=== PATIENT | female | born 1995 | race Caucasian/White ===

== ENCOUNTER 2016-06-11 15:41 | Outpatient (CLI) | payer OTHER ==
[~2016-06-11] VITALS: Ht 154.9 cm; Wt 53.2 kg
[2016-06-11 15:47] VITALS: BP 108/61; PULSE 88; RESP 16; Ht 154.9 cm; Wt 53.2 kg
--- NOTE | 2016-06-11 16:52 | CONS ---
Date/Time of Note Date/Time of Note DATE: 06/11/16 TIME: 16:38 Assessment/Plan Assessment/Plan Additional Assessment/Plan [facility] SUBSEQUENT OUTPATIENT CONSULTATION NOTE DATE OF CONSULTATION: 06/11/16 PLACE OF SERVICE: [facility]. IMPRESSION AND PLAN: A very pleasant, otherwise healthy 20-year-old young lady , well known to us since initial visit on 12/12/2015 when she presented for evaluation and management of a 1.4 x 2 x 1.1 cm lesion in right breast, 11-o' clock position, 2 cm from the nipple that both on clinical exam as well as ultrasound findings was consistent with a benign fibroadenoma. Repeat US 05/08/16 : 1.7 x 2.0 x 0.9 cm stable hypoechoic mass. + new pain above the lesion along the lateral upper portion of right breast going into the axilla. Do not suspect infection. Recommended symptomatic treatment with follow up in 6 months with repeat US. If pain johnston not improve in a few weeks, to consider further imaging including possibly a bilateral breast MRI (reviewed risks of overtreatment). Answered all questions. Patient appeared to understand and wished to proceed. With above impression, I have recommended the followin. Bilateral breast ultrasound 10/2016. 2. Followup visit with us after above is done. 3. For the patient to please call us immediately if there are any changes in her clinical condition including increase in size, increase in symptoms, nipple discharge or other issues. Thank you again for allowing us to participate in the care of this very pleasant young lady and I'm certain her wonderful family. If there are any questions, please feel free to call me at [phone]. TOTAL VISIT TIME: Thirty minutes, of which more than half was spent in face-to- face discussion with the patient as well as coordination of care between multiple physicians and providers. Updated Clinical Summary: A very pleasant, otherwise healthy 20-year-old young lady, well known to us since initial visit on 12/12/2015 when she presented for evaluation and management of a 1.4 x 2 x 1.1 cm lesion in right breast, 11-o'clock position, 2 cm from the nipple that both on clinical exam as well as ultrasound findings was consistent with a benign fibroadenoma. Repeat US 05/08/16: 1.7 x 2.0 x 0.9 cm stable hypoechoic mass. + new pain reported 06/11/16 above the lesion along the lateral upper portion of right breast going into the axilla since 01/2016. HISTORY OF PRESENT ILLNESS: The patient is a very pleasant, otherwise healthy 20-year-old young lady, following up for R breast lesion that is thought to be a fibroadenoma. She reports tenderness in that region. No skin changes, no breast asymmetry. No nipple discharge. No prior issues with her breasts. No family history of breast disease including no breast cancer. The patient had an ultrasound 10/11/2015 that showed a lesion at the 11-o'clock position of the right breast 2 cm from the nipple with lobulated hypoechoic features and measuring 1.4 x 2.0 x 1.1 cm. This was read as a BI-RADS 3 and probably benign lesion, and recommendation was made to have a breast ultrasound in 6 months. Seen initially by us 11/2015. Repeat US 05/08/16: 1.7 x 2.0 x 0.9 cm stable hypoechoic mass. + new pain reported 06/11/16 above the lesion along the lateral upper portion of right breast going into the axilla since 01/2016. Today I had the chance to meet the patient and review all her information very carefully. She has no other major complaints. A 14-point review of systems is otherwise negative. Comorbidities: 1. R breast lesion as above 2. Status post of her 2-year-old daughter 2 years ago. ALLERGIES: PENICILLIN WITH UNKNOWN REACTION. MEDICATIONS: None. SOCIAL HISTORY: The patient currently works as a station cashier. She is a single mother and has a 2-year-old daughter. She also is going to physician assistant [employer] and has 1 more month left to finish the training. She does not report any smoking, drinking or intravenous drug use. FAMILY HISTORY: Significant for grandfather with knee and back-type malignancy. Aunt with an unknown malignancy and a cousin with a right eye malignancy that led to removal of the eye. There is also history of diabetes, heart disease, stroke and high blood pressure in the family. REVIEW OF SYSTEMS: Other than the above mentioned, there are no other pertinent positives or pertinent negatives in a complete 14-point review of systems. PHYSICAL EXAMINATION: GENERAL: The patient appears to be a very pleasant young lady of descent, appearing stated age, sitting in a chair comfortably and in no acute distress. Her BMI is 22.2 (previously 22.7 11/2015). VITAL SIGNS: Stable and she is afebrile. HEENT: Her head is normocephalic and atraumatic. Her extraocular muscles and hearing are grossly intact bilaterally and symmetrically. Her sclerae are nonicteric. Her oral cavity is clear, and her oral mucosa appears to be pink and moist. She has relatively fair dentition. NECK: Supple. There is no lymphadenopathy or JVD. There is no submental, submandibular or supraclavicular lymphadenopathy. CHEST: Rises symmetrically with each breath and she is breathing comfortably. BREASTS: Essentially unchanged from prior exam: Bilateral and symmetrical breasts with both arms raised over her head. There is no peau d'orange or other obvious skin abnormalities. Careful examination of the left axilla shows no lymphadenopathy or abnormal features. Careful examination of the left breast shows a few nodules which are slight to no tenderness to palpation scattered throughout the left breast region. There is no nipple-areola complex abnormality and no nipple discharge with squeezing. Careful examination of the right axilla shows no evidence of lymphadenopathy or abnormality in this area. Careful examination of the right breast shows above-mentioned lesion at the 11-o 'clock position 2 cm away from the nipple-areola complex which is somewhat tender to palpation. There are smooth edges associated with this, and it is relatively mobile and certainly not fixed to any of the underlying structures. The rest of the exam is consistent with more less than 1 cm nodules times 2 or 3 scattered throughout the right breast. Nipple-areolar complex is normal, and there is no discharge from the nipple with squeezing the nipple. ABDOMEN: Soft, nontender and nondistended. There are no peritoneal signs or guarding. SKIN: Appears to be pink and feels warm to touch. NEUROLOGIC: She is awake, alert and follows commands appropriately. LABORATORY VALUES: None for this exam. IMAGING: Above-mentioned ultrasound was reviewed by me personally. Consultation Date/Type/Reason Admit Date/Time Initial Consult Date Exam/Review of Systems Vital Signs Vitals Vital Signs Date Time Temp Pulse Resp B/P Pulse Ox O2 Delivery O2 Flow Rate FiO2 06/11/16 15:47 98.6 88 16 108/61 99 Room Air CASEY MARLEY M.D. Jun 11, 2016 16:49
== END 2016-06-11 16:46 | disposition home or self-care (01) ==
LOC: HPC 15:41
PROVIDERS: ATTEND Transplant Surgery
DX: N64.9 Disorder of breast, unspecified (principal); Z88.0 Allergy status to penicillin
CPT/HCPCS: G0463

== ENCOUNTER 2017-03-04 09:28 | Outpatient (CLI) | payer OTHER ==
[~2017-03-04] VITALS: Ht 154.9 cm; Wt 54.1 kg
[2017-03-04 09:53] VITALS: BP 106/55; PULSE 79; RESP 16; Ht 154.9 cm; Wt 54.1 kg
--- NOTE | 2017-03-04 12:39 | CONS ---
Date/Time of Note Date/Time of Note DATE: 03/04/17 TIME: 12:39 Assessment/Plan Assessment/Plan Additional Assessment/Plan [facility] SUBSEQUENT OUTPATIENT CONSULTATION NOTE DATE OF CONSULTATION: 03/04/2017 PLACE OF SERVICE: [facility] at [facility]. IMPRESSION AND PLAN: A very pleasant, otherwise healthy 21-year-old young lady , well known to us since initial visit on 12/12/2015 when she presented for evaluation and management of a 1.4 x 2 x 1.1 cm lesion in right breast, 11-o' clock position, 2 cm from the nipple that both on clinical exam as well as ultrasound findings was consistent with a benign fibroadenoma. We have been following the patient symptomatically and I had requested a biopsy of the lesion in right breast which unfortunately came back as fibroadenoma. Repeat ultrasound 02/09/2017 also showed benign disease. But because the patient is having ongoing pain in this region and it has been about a year, she requested and I agreed to surgical removal of this region with the goal of reducing if not completely eliminating the pain. I did spend quite a bit of time with the patient (no family present) and explained to her that there is a small chance that her pain may persist even after surgery. We reviewed the operation in detail including the risks, benefits, and alternatives and I obtain the patient' s consent for the operation. Answered all questions. Patient appeared to understand and wished to proceed. Previous assessments that applies today: Repeat US 05/08/16: 1.7 x 2.0 x 0.9 cm stable hypoechoic mass. + new pain above the lesion along the lateral upper portion of right breast going into the axilla. Do not suspect infection. Recommended symptomatic treatment with follow up in 6 months with repeat US. If pain johnston not improve in a few weeks, to consider further imaging including possibly a bilateral breast MRI (reviewed risks of overtreatment). With above impression, I have recommended the followin. Schedule patient for local excision of the right breast lesion (11 o'clock position 2 cm away from the nipple) Thank you again for allowing us to participate in the care of this very pleasant young lady and I'm certain her wonderful family. If there are any questions, please feel free to call me at [phone]. Nature of presenting problem: Low severity Please note that, given the limited number of diagnoses or management options, the limited amount and/or complexity of data needed to be reviewed, and low risk of complications and/or morbidity or mortality, this qualifies as low complexity type of decision-making. Disclaimers: 1. Inadvertent spelling and grammatical errors are likely due to electronic health record (EHR)/dictation software used and do not reflect on the quality of delivered patient care. 2. The electronic timestamp recorded on this note does not necessarily reflect the actual date and time of the visit or the service. 3. Portions of this note may have been created through electronic templates and computer algorithms that might bring in information either from the system or from other physicians and providers. Please note that such information may or may not contain errors, the occurrence of which are outside of my control. In general (but not always) this happens either in the beginning or at the end of the note. The portion of the note that I have created are generally done in 1 continuous block of text, flanked at the beginning and at the end by " ", and entered into one field in the EHR. 4. There may be other unanticipated errors in the note that are outside of my control. I can only attest to the portions of the note that I have created. Updated Clinical Summary: A very pleasant, otherwise healthy 20-year-old young lady, well known to us since initial visit on 12/12/2015 when she presented for evaluation and management of a 1.4 x 2 x 1.1 cm lesion in right breast, 11-o'clock position, 2 cm from the nipple that both on clinical exam as well as ultrasound findings was consistent with a benign fibroadenoma. Repeat US 05/08/16: 1.7 x 2.0 x 0.9 cm stable hypoechoic mass. + new pain reported 06/11/16 above the lesion along the lateral upper portion of right breast going into the axilla since 01/2016. Ultrasound-guided right breast biopsy 08/14/2016 showed fibroadenomatoid nodule without any evidence of malignancy. Repeat breast ultrasound 02/09/2017 showed BI-RADS 2 benign findings. Comorbidities: 1. R breast lesion as above 2. Status post of her 2-year-old daughter 2013 HISTORY OF PRESENT ILLNESS: The patient is a very pleasant, otherwise healthy 21-year-old young lady who we have been following for management of a R breast lesion that is thought to be a fibroadenoma and has been giving patient pain and noted in existence for at least a year. She reports ongoing issues with tenderness in that region with some radiation upwards and lateral without significant change room attendant a year. No skin changes, no breast asymmetry. No nipple discharge. No prior issues with her breasts. No family history of breast disease including no breast cancer. The patient had an ultrasound 2015 that showed a lesion at the 11-o'clock position of the right breast 2 cm from the nipple with lobulated hypoechoic features and measuring 1.4 x 2.0 x 1.1 cm. This was read as a BI-RADS 3 and probably benign lesion, and recommendation was made to have a breast ultrasound in 6 months. Seen initially by us 11/2015. Repeat US 05/08/16: 1.7 x 2.0 x 0.9 cm stable hypoechoic mass. + new pain reported 06/11/16 above the lesion along the lateral upper portion of right breast going into the axilla since 01/2016. Further workup was done and is outlined in the summary above. Today I had the chance to meet the patient and review all her information very carefully. She has no other major complaints. A 14-point review of systems is otherwise negative. ALLERGIES: PENICILLIN WITH UNKNOWN REACTION. MEDICATIONS: None. SOCIAL HISTORY: The patient currently works as a [employer] ticket cashier. She is a single mother and has a young daughter. 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 She does not report any smoking, drinking or intravenous drug use. FAMILY HISTORY: Significant for grandfather with knee and back-type malignancy. Aunt with an unknown malignancy and a cousin with a right eye malignancy that led to removal of the eye. There is also history of diabetes, heart disease, stroke and high blood pressure in the family. REVIEW OF SYSTEMS: Other than the above mentioned, there are no other pertinent positives or pertinent negatives in a complete 14-point review of systems. PHYSICAL EXAMINATION: GENERAL: The patient appears to be a very pleasant young lady of descent, appearing stated age, sitting in a chair comfortably and in no acute distress. Her BMI is 22.5 (previously 22.7 11/2015). VITAL SIGNS: Stable and she is afebrile. HEENT: Her head is normocephalic and atraumatic. Her extraocular muscles and hearing are grossly intact bilaterally and symmetrically. Her sclerae are nonicteric. Her oral cavity is clear, and her oral mucosa appears to be pink and moist. She has relatively fair dentition. NECK: Supple. There is no lymphadenopathy or JVD. There is no submental, submandibular or supraclavicular lymphadenopathy. CHEST: Rises symmetrically with each breath and she is breathing comfortably. BREASTS: Essentially unchanged from prior exam: Bilateral and symmetrical breasts with both arms raised over her head. There is no peau d'orange or other obvious skin abnormalities. Careful examination of the left axilla shows no lymphadenopathy or abnormal features. Careful examination of the left breast shows a few nodules which are slight to no tenderness to palpation scattered throughout the left breast region. There is no nipple-areola complex abnormality and no nipple discharge with squeezing. Careful examination of the right axilla shows no evidence of lymphadenopathy or abnormality in this area. Careful examination of the right breast shows above-mentioned lesion at the 11-o 'clock position 2 cm away from the nipple-areola complex which is somewhat tender to palpation. There are smooth edges associated with this, and it is relatively mobile and certainly not fixed to any of the underlying structures. The rest of the exam is consistent with more less than 1 cm nodules times 2 or 3 scattered throughout the right breast. Nipple-areolar complex is normal, and there is no discharge from the nipple with squeezing the nipple. ABDOMEN: Soft, nontender and nondistended. There are no peritoneal signs or guarding. SKIN: Appears to be pink and feels warm to touch. NEUROLOGIC: She is awake, alert and follows commands appropriately. LABORATORY VALUES: None for this exam. IMAGING: Above-mentioned ultrasound was reviewed by me personally. Consultation Date/Type/Reason Admit Date/Time Exam/Review of Systems Vital Signs Vitals Vital Signs Date Time Temp Pulse Resp B/P Pulse Ox O2 Delivery O2 Flow Rate FiO2 03/04/17 09:53 98.9 79 16 106/55 98 Room Air CASEY MARLEY M.D. Mar 04, 2017 12:39
== END 2017-03-04 17:00 | disposition home or self-care (01) ==
LOC: HPC 09:28
PROVIDERS: ATTEND Transplant Surgery
DX: D24.1 Benign neoplasm of right breast (principal); N63.10 Unspecified lump in the right breast, unspecified quadrant; Z88.0 Allergy status to penicillin
CPT/HCPCS: G0463

== ENCOUNTER 2017-04-30 08:10 | Day surgery (SDC) | END 2017-04-30 16:27 | disposition home or self-care (01) ==

== ENCOUNTER 2017-05-13 15:30 | Outpatient (CLI) | END 2017-05-13 15:53 | disposition home or self-care (01) ==

== ENCOUNTER 2017-09-04 22:41 | Emergency (ER) | END 2017-09-05 01:56 | disposition home or self-care (01) ==

== ENCOUNTER 2018-01-20 11:00 | Outpatient (CLI) | END 2018-01-20 15:45 | disposition home or self-care (01) ==

== ENCOUNTER 2018-02-15 19:48 | Outpatient (CLI) | END 2018-02-16 00:10 | disposition home or self-care (01) ==

== ENCOUNTER 2018-02-18 12:15 | Inpatient (IN) | END 2018-02-20 16:24 | disposition home or self-care (01) | DRG 807 ==

== ENCOUNTER 2018-06-27 09:27 | Emergency (ER) | payer OTHER ==
[~2018-06-27] VITALS: Ht 157.5 cm; Wt 51.8 kg
[~2018-06-27 09:27] MED LIST: PREN-93 PO
[2018-06-27 09:42] VITALS: BP 113/67; PULSE 106; RESP 18; Ht 157.5 cm; Wt 51.8 kg
--- NOTE | 2018-06-27 10:14 | ERD ---
ER Documentation Chief Complaint Chief Complaint sorethroat and ear pain x3 days HPI 22-year-old female is here complaining of 3 days of congestion, mild cough, sore throat and bilateral ear pain. No fever. Has not taken any medications at home. No vomiting. ROS All systems reviewed and are negative except as per history of present illness. Medications Home Meds Reported Medications Vit No.124/Iron/FA ( Vitamin Tablet) 1 Each Tablet, 1 EACH PO DAILY, TAB 01/20/18 Allergies Allergies: Coded Allergies: Penicillins (Verified Allergy, Severe, BREATHING AND RASH, 04/30/17) PMhx/Soc History of Surgery: No Anesthesia Reaction: No Hx Neurological Disorder: No Hx Respiratory Disorders: No Hx Cardiac Disorders: No Hx Psychiatric Problems: No Hx Miscellaneous Medical Probl: No Hx Alcohol Use: No Hx Substance Use: No Hx Tobacco Use: No FmHx Family History: No diabetes Physical Exam Vitals Vital Signs Date Temp Pulse Resp B/P (MAP) Pulse Ox O2 O2 Flow FiO2 Time Delivery Rate 06/27/18 99.1 106 18 113/67 97 09:42 (82) Physical Exam INITIAL VITAL SIGNS: Reviewed by me GENERAL: Awake, alert and oriented x 4, well appearing, nontoxic, speaking in full sentences. No acute distress HEAD: Atraumatic NECK: Supple. No masses. Full range of motion. No meningismus. No midline tende rness. EYES: EOMI. PERRL. EAR: No tenderness over the mastoids bilaterally. No exudates in the canals. TMs nonerythematous. NOSE: Normal nose. THROAT: No tonilar erythema or edema. No exudates. Uvula midline. No kissing tonsils. RESPIRATORY: Clear to auscultation bilaterally. Symmetric chest wall rise. No wheezing or rales. No accessory muscle use. CV: Regular rate and rhythm. No murmurs, rubs, or gallops. Procedures/MDM This is an otherwise healthy, well appearing patient presenting with uncomplicated URI symptoms, likely viral in etiology. Patient is non-toxic and well hydrated. I have low suspicion for pneumonia or significant bacterial disease. Patient will be treated with outpatient supportive care; no indications for antibiotics at this time. Discharge instructions have included return precautions and close follow up with PMD. Medical Decision Making: Clinical Impression: Acute Viral Upper Respiratory Tract Infection, initial encounter Departure Diagnosis: Primary Impression: URI (upper respiratory infection) Condition: Stable Patient Instructions: Preventing Common Respiratory Infections Additional Instructions: Call your primary care doctor TOMORROW for an appointment during the next 1-2 days.See the doctor sooner or return here if your condition worsens before your appointment time. LORIN LAND PA-C Jun 27, 2018 10:14
== END 2018-06-27 10:27 | disposition home or self-care (01) ==
LOC: FTE 09:27
DX: J06.9 Acute upper respiratory infection, unspecified (principal)
CPT/HCPCS: 99282